=== PATIENT | male | born 1970 | race Caucasian/White ===

== ENCOUNTER 2016-10-09 09:48 | Emergency (ER) | payer MEDICAID ==
[~2016-10-09] VITALS: Ht 195.5 cm; Wt 95.3 kg
[2016-10-09] MEDS ORDERED: CRESTOR5 MG PO (09:57)
[2016-10-09] MEDS ORDERED: CITALOPRAM40 MG PO (09:58)
[2016-10-09] MEDS ORDERED: Motrin,Rufen800 MG PO (11:38)
== END 2016-10-09 11:48 | disposition home or self-care (01) ==
LOC: ED 09:48
DX: M77.9 Enthesopathy, unspecified (principal)